=== PATIENT | female | born 1985 | race Caucasian/White ===

== ENCOUNTER 2019-12-29 20:19 | Emergency (ER) | payer OTHER ==
[~2019-12-29] VITALS: Ht 175.3 cm; Wt 59.0 kg
[2019-12-29] MEDS ORDERED: TIROSINT50 MCG PO (20:39)
--- OUTSIDE RECORDS SUMMARY | 2019-12-29 23:06 | XMS ---
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 E.D. VISIT COUNT (12 MO.) 1 Starr Espinal TOTAL 2 NOTE: Visits indicate total known visits. ED/UCC VISIT TRACKING (12 MO.) 12/29/2019 20:21 [facility] [place] TYPE: Emergency COMPLAINT: - SWEATING, DISORIENTATED 11/27/2019 15:01 [facility] TYPE: Emergency DIAGNOSES: - vomiting x 3 days, diarrhea - Dehydration - Hypokalemia - Noninfective gastroenteritis and colitis, unspecified INPATIENT VISIT TRACKING (12 MO.) No inpatient visits to display in this time frame [email or web address]
== END 2019-12-29 22:50 | disposition home or self-care (01) ==
LOC: ED 20:19
DX: F10.129 Alcohol abuse with intoxication, unspecified (principal); E06.3 Autoimmune thyroiditis; Y90.8 Blood alcohol level of 240 mg/100 ml or more; Z79.899 Other long term (current) drug therapy
CPT/HCPCS: 80053; 81001; 84703; 85025; 99284; G0480